=== PATIENT | male | born 1985 | race Caucasian/White ===

== ENCOUNTER 2018-07-29 21:50 | Emergency (ER) | payer SELFPAY ==
[2018-07-29 21:51] VITALS: BP 125/79; PULSE 117; RESP 20; TEMP 36; O2SAT 99; BMI 18.3
--- NOTE | 2018-07-29 21:55 | ED.RN ---
PT ASKED [employer]PERATOR IF THE MD WOULD LET HIM SLEEP HERE FOR THE NIGHT. PT ORIGINALLY FROM [place]. OFFERED [facility], PT STATES HE CAN'T SLEEP THERE BECAUSE HE DOESN'T HAVE AN ID. INFORMED PT HE COULD SLEEP UNTIL DISCHARGE INSTRUCTIONS WERE PROVIDED.
--- NOTE | 2018-07-29 22:45 | RAD_ITS ---
STUDY: X-RAY CHEST REASON FOR EXAM: Male, 33 years old. Cough, cold symptoms TECHNIQUE: PA and lateral chest COMPARISON: None. FINDINGS: The lungs are clear and expanded. There is no demonstrated pleural abnormality. Normal size heart. Normal mediastinum and abdon. Normal visualized pulmonary arteries. Normal visualized aortic arch and descending thoracic aorta. Normal visualized thoracic spine. Normal visualized ribs, clavicles, and shoulders. There is no demonstrated abnormality of the visualized soft tissue structures of the upper abdomen. There is significant S-shaped thoracolumbar spinal scoliosis. There is fixation rods thoracic and lumbar spine. RAD/Chest PA and Lateral IMPRESSION: No acute process There is significant S-shaped thoracolumbar spinal scoliosis. There are fixation rods thoracic and lumbar spine. Electronically Signed: Yobany Gee, at 23:36 EDT Tel , Service support ,
--- NOTE | 2018-07-29 23:48 | ED.VISSUMM ---
- ER Visit Summary Date of Service: 07/29/18 Chief Complaint: Cough History of Present Illness: The patient is a [address] Owusu. He reports he has a cough that began 1 week ago. Is nonproductive. Has had chills, but no fever. Reports he has been had mild shortness of breath. He has been wheezing. He does not have an inhaler that he uses. He denies any sore throat. Physical Examination: Vitals: Stable. Afebrile. General: Well-nourished and well-developed. Head: Normocephalic atraumatic. Neck: Supple, no lymphadenopathy. No JVD. Nontender. Cardiovascular: Regular rate and rhythm. No murmurs. Respiratory: No respiratory distress. Clear to auscultation bilaterally. Abdominal: Soft, nontender, nondistended, normal bowel sounds. No guarding, rebound, or peritoneal signs. Back: Nontender. Extremities: Nontender, no edema. Skin: Normal color, no rash. Neurologic: Alert and oriented ?3. Cranial nerves II through XII are intact. Normal strength and sensation. Psych: Normal affect. Test Results: Chest x-ray shows no acute disease Emergency Department Course and Treatment: Patient was given prednisone p.o. He will be discharged with an albuterol MDI. Treatment Plan: Patient be discharged instructed to follow-up his primary care physician 1 week if not improving. Return to the emergency department for any worsening symptoms. Disposition: To home in improved and stable condition. Impression: 1. URI. This note was generated with [employer] dictation software. It may contain incorrect words, spelling, and punctuation that were not noted in review of the chart prior to signing ED Disposition - Plan for ED Patient: Disposition: Home or Assisted Living Instructions: ED Upper Resp Infec No Abx Tx Prescriptions: Prednisone [Deltasone] 40 mg PO DAILY #10 tablet Referrals: Lamont Owusu MD [NON-STAFF] - 1 Week if not improving
[2018-07-30] MEDS: predniSONE 20 MG Tablet 40 MG PO (00:12)
== END 2018-07-30 00:29 | disposition home or self-care (01) ==
LOC: ED 23:51
PROVIDERS: Emergency Provider Emergency Medicine
DX: J06.9 Acute upper respiratory infection, unspecified (principal); Z72.0 Tobacco use
CPT/HCPCS: 71046; 99283

== ENCOUNTER 2018-10-10 04:57 | Emergency (ER) | payer MEDICAID, SELFPAY ==
[2018-10-10 04:58] VITALS: BP 98/77; PULSE 72; RESP 10; TEMP 36.7; O2SAT 99; BMI 17.2
--- NOTE | 2018-10-10 05:07 | ED.RN ---
RN CALLED FOR EKG, NO OLD EKGS IN MUSE
--- NOTE | 2018-10-10 05:10 | RAD_ITS ---
STUDY: X-RAY CHEST REASON FOR EXAM: Male, 33 years old. Cough TECHNIQUE: 2 views COMPARISON: None. FINDINGS: The heart is normal in size. There is no acute pneumonia or failure and no pleural effusions.. There is a 39 degree thoracic scoliosis with convexity to the right with the presence of 2 Rocha's rods extending from the lower cervical region to the upper lumbosacral spine. The hardware is in good position. Normal visualized ribs, clavicles, and shoulders. There is no demonstrated abnormality of the visualized soft tissue structures of the upper abdomen. RAD/Chest PA and Lateral IMPRESSION: No acute findings in the lungs. Electronically Signed: Sloan Vaz MD at 6:03 EDT Tel , Service support ,
--- NOTE | 2018-10-10 05:10 | EKG12_ITS ---
Test Reason : CHEST PAIN Blood Pressure : / mmHG Vent. Rate : 069 BPM Atrial Rate : 069 BPM P-R Int : 112 ms QRS Dur : 100 ms QT Int : 396 ms P-R-T Axes : 016 047 046 degrees QTc Int : 424 ms Normal sinus rhythm with sinus arrhythmia Normal ECG Confirmed by MICHELLE CADET ([id number]), brands editor SUDHAKAR NGUYỄN ([id number]) on 10/15/2018 11:32:17 AM Referred By: MAURY Confirmed By:LAURA CADET
--- NOTE | 2018-10-10 06:06 | ED.DCSUM_ITS ---
- ER Visit Summary Date of Service: 10/10/18 Chief Complaint: Chest pain History of Present Illness: The patient is a 33 M who presents with a little bit of chest pain. He states he was walking for the last 13 hours trying to get home to [place]. He lives with his elderly mother who does not drive and h ad no other way to get home. He has been out walking in the cold through the night. He believes this is why he has some chest pain which he describes as throbbing but is only mild. He also has a history of scoliosis and has some upper back pain. He denies any shortness of breath fevers nausea or vomiting. On arrival he was asking for something to eat and asked if he could sleep here for a couple of hours. Physical Examination: Afebrile vitals are unremarkable Moist mucous membranes Heart regular rate and rhythm Lungs clear Abdomen soft Alert Test Results: EKG shows normal sinus rhythm at a rate of 69. Two-view chest x- ray is normal, no acute findings. Emergency Department Course and Treatment: I do not believe the patient's pain is related to any serious or life-threatening pathology. EKG and chest x-ray are normal. Patient will be discharged. Treatment Plan: [] Disposition: Discharge Impression: Chest pain This note was generated with [employer] dictation software. It may contain incorrect words, spelling, and punctuation that were not noted in review of the chart prior to signing ED Disposition - Plan for ED Patient: Referrals: Lamont Owusu MD [Primary Care Provider] -
--- NOTE | 2018-10-10 06:30 | ED.DEP ---
ED Disposition - Plan for ED Patient: Instructions: ED Chest Pain NonCardiac Referrals: Lamont Owusu MD [Primary Care Provider] -
[2018-10-10 06:47] VITALS: BP 105/80; PULSE 105; RESP 20; O2SAT 98
== END 2018-10-10 08:30 | disposition home or self-care (01) ==
PROVIDERS: Emergency Provider Emergency Medicine; Family Provider Family Medicine; PCP Family Medicine
DX: R07.9 Chest pain, unspecified (principal); M54.6 Pain in thoracic spine; M41.9 Scoliosis, unspecified; Z72.0 Tobacco use
CPT/HCPCS: 36415; 71046; 93005; 99285; J7030; A4216

== ENCOUNTER → 2022-06-19 | Outpatient (REF) | payer MEDICAID, SELFPAY ==
[2022-06-19 22:07] VITALS: BP 128/96; PULSE 68; RESP 18; TEMP 35.5; O2SAT 100; BMI 17.6
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
[2022-06-19] MEDS: Diphth,Pertuss(Acell),Tet Vac 0.5 ML Vial IM (23:27)
== END ==
LOC: EDREF 23:44
PROVIDERS: Emergency Provider Emergency Medicine; PCP Family Medicine
DX: S01.81XA Laceration without foreign body of other part of head, initial encounter (principal); S05.11XA Contusion of eyeball and orbital tissues, right eye, initial encounter; F17.200 Nicotine dependence, unspecified, uncomplicated; Y04.8XXA Assault by other bodily force, initial encounter
CPT/HCPCS: 12011; 90715; 99283